=== PATIENT | male | born 1995 | race African-American/Black ===

== ENCOUNTER 2019-04-14 20:24 | Emergency (ER) | payer OTHER ==
[~2019-04-14] VITALS: Ht 180.3 cm; Wt 81.8 kg
[2019-04-14 20:34] VITALS: BP 160/96; TEMP 98.9
[2019-04-14] MEDS ORDERED: ZOVIRAX800 MG PO (21:31)
[2019-04-14] MEDS ORDERED: ELOCON45GOINT TOP (21:31)
[2019-04-14 21:40] VITALS: PULSE 94
== END 2019-04-14 21:40 | disposition home or self-care (01) ==
LOC: COL.ER 20:24
DX: B00.0 Eczema herpeticum (principal)